=== PATIENT | female | born 1990 | race American Indian/Alaskan Native ===

== ENCOUNTER 2019-11-05 02:48 | Emergency (ER) | payer SELFPAY ==
[2019-11-05] MEDS ORDERED: dexAMETHasone 20 MG/5 ML VIAL IM ONE (04:41)
[2019-11-05] MEDS ORDERED: LIDOCAINE VISCOUS 2% 15 ML ORAL LIQD PO ONE (04:41)
[2019-11-05] MEDS ORDERED: KETOROLAC 30 MG/1 ML INJ IM ONE (04:41)
[2019-11-05] MEDS ORDERED: PENICILLIN G BENZATHINE 1.2 MILLION UNIT/2 ML INJ IM ONE (05:34)
--- NOTE | 2019-11-05 05:40 | Emergency Department Report ---
ED General Adult HPI - General Chief complaint: Sore Throat Stated complaint: THROAT SWOLLEN Source: patient Mode of arrival: Ambulatory Limitations: No Limitations - History of Present Illness Initial comments: Patient is a 29-year-old -[place] female with no past medical history who presents to the ED with complaint of acute onset persistent severe sore throat with dysphagia, diffuse body aches and pains with chills for the last 2 days. Patient states that she has not been able to swallow anything because of severe pain in her throat. Patient denies dizziness, nausea, vomiting, chest pain, shortness of breath, cough, headache, change in vision, syncope, abdominal pain, dysuria, urinary frequency and urgency and headache. Patient states that no one else at home is had similar symptoms. MD Complaint: sore throat; dysphagia -: Sudden, days(s) (2) Location: mouth Radiation: non-radiation Severity scale (0 -10): 10 Quality: aching, sharp Consistency: constant Improves with: none Worsens with: eating Associated Symptoms: denies other symptoms, loss of appetite. denies: confusion, chest pain, cough, diaphoresis, fever/chills, headaches, malaise, nausea/vomiting, rash, seizure, shortness of breath, syncope, weakness, other Treatments Prior to Arrival: none - Related Data Previous Rx's Medication Instructions Recorded Last Taken Type Ibuprofen [Motrin] 600 mg PO Q8H PRN #24 tablet 11/05/19 Unknown Rx Lidocaine Viscous 2% 10 ml PO Q6H PRN #120 ml 11/05/19 Unknown Rx Promethazine [Phenergan] 25 mg PO Q6HR PRN #24 tab 11/05/19 Unknown Rx methylPREDNISolone [Medrol 4MG 4 mg PO DAILY #21 tab.ds.pk 11/05/19 Unknown Rx DOSEPAK (21 tabs)] Allergies Allergy/AdvReac Type Severity Reaction Status Date / Time No Known Allergies Allergy Verified 11/05/19 04:45 ED Review of Systems ROS: Stated complaint: THROAT SWOLLEN Other details as noted in HPI Constitutional: chills, fever, malaise Eyes: denies: eye pain, eye discharge, vision change ENT: throat pain. denies: ear pain Respiratory: denies: cough, shortness of breath, wheezing Cardiovascular: denies: chest pain, palpitations Endocrine: no symptoms reported Gastrointestinal: denies: abdominal pain, nausea, vomiting, diarrhea Genitourinary: denies: urgency, dysuria, discharge Musculoskeletal: denies: back pain, joint swelling, arthralgia Skin: denies: rash, lesions Neurological: headache. denies: weakness, paresthesias Psychiatric: denies: anxiety, depression Hematological/Lymphatic: denies: easy bleeding, easy bruising ED Past Medical Hx - Past Medical History Previous Medical History?: No - Surgical History Past Surgical History?: No - Social History Smoking Status: Current Every Day Smoker Substance Use Type: Marijuana - Medications Home Medications: Home Medications Medication Instructions Recorded Confirmed Last Taken Type Ibuprofen [Motrin] 600 mg PO Q8H PRN #24 tablet 11/05/19 Unknown Rx Lidocaine Viscous 2% 10 ml PO Q6H PRN #120 ml 11/05/19 Unknown Rx Promethazine [Phenergan] 25 mg PO Q6HR PRN #24 tab 11/05/19 Unknown Rx methylPREDNISolone [Medrol 4MG 4 mg PO DAILY #21 tab.ds.pk 11/05/19 Unknown Rx DOSEPAK (21 tabs)] ED Physical Exam - General Limitations: No Limitations General appearance: alert, in no apparent distress - Head Head exam: Present: atraumatic, normocephalic, normal inspection - Eye Eye exam: Present: normal appearance, PERRL, EOMI Pupils: Present: normal accommodation - ENT ENT exam: Present: mucous membranes moist, TM's normal bilaterally, normal external ear exam, other (Erythematous oropharynx and mildly swollen tonsils with white exudates; grossly congested nasal passages) - Neck Neck exam: Present: normal inspection, full ROM, lymphadenopathy - Respiratory Respiratory exam: Present: normal lung sounds bilaterally. Absent: respiratory distress, wheezes, rales, rhonchi, chest wall tenderness - Cardiovascular Cardiovascular Exam: Present: regular rate, normal rhythm, normal heart sounds. Absent: systolic murmur, diastolic murmur, rubs, gallop - GI/Abdominal GI/Abdominal exam: Present: soft, normal bowel sounds. Absent: tenderness, guarding, rebound, hyperactive bowel sounds, hypoactive bowel sounds, organomegaly - Extremities Exam Extremities exam: Present: normal inspection, full ROM, normal capillary refill - Back Exam Back exam: Present: normal inspection, full ROM. Absent: tenderness, CVA tenderness (L), muscle spasm, paraspinal tenderness, vertebral tenderness - Neurological Exam Neurological exam: Present: alert, oriented X3, CN II-XII intact, normal gait, reflexes normal - Psychiatric Psychiatric exam: Present: normal affect, normal mood - Skin Skin exam: Present: warm, dry, intact, normal color. Absent: rash ED Course Vital Signs 11/05/19 02:58 Temperature 99.7 F H Pulse Rate 93 H Respiratory 18 Rate Blood Pressure 135/80 O2 Sat by Pulse 98 Oximetry ED Medical Decision Making - Medical Decision Making This is a 29-year-old female who presented to the ED with severe sore throat, dysphagia, diffuse body aches and pains with chills and headache for 2 days. In the ED, patient is alert and oriented x3 and is not in any distress with normal vital signs but appears to be uncomfortable. Rapid strep test was positive for group A strep. Patient was treated for pain in the ED and also received oral steroids and Bicillin 1,200,000 units intramuscular injection. On reevaluation, patient pain is well controlled with medications. Patient was discharged home on medications and advised to follow-up with ENT physician Dr. Fatmata Chaudhry in 3 to 5 days for reevaluation. Patient was also advised to return to the ED immediately if symptoms get worse. - Differential Diagnosis Strep pharyngitis; Tonsillar abscess; Viral pharyngitis; Pneumonia Critical care attestation.: If time is entered above; I have spent that time in minutes in the direct care of this critically ill patient, excluding procedure time. ED Disposition Clinical Impression: Acute streptococcal pharyngitis, Acute bacterial tonsillitis Disposition: TO HOME OR SELFCARE Is pt being admited?: No Does the pt Need Aspirin: No Condition: Stable Instructions: Strep Throat (ED), Tonsillitis (ED), Upper Respiratory Infection (ED) Additional Instructions: Take medication with food, drink plenty of fluids and follow-up with your primary care physician in 5 to 7 days for reevaluation. Return to the ED immediately if symptoms get worse. Prescriptions: Lidocaine Viscous 2% 10 ml PO Q6H PRN #120 ml PRN Reason: Pain , Severe (7-10) methylPREDNISolone [Medrol 4MG DOSEPAK (21 tabs)] 4 mg PO DAILY #21 tab.ds.pk Ibuprofen [Motrin] 600 mg PO Q8H PRN #24 tablet PRN Reason: Pain Promethazine [Phenergan] 25 mg PO Q6HR PRN #24 tab PRN Reason: Nausea Referrals: FATMATA CHAUDHRY MD [Staff Physician] - 3-5 Days Time of Disposition: 05:42 Print Language: PRYDEINIG
[2019-11-05 06:29] VITALS: BP 117/64
== END 2019-11-05 06:30 | disposition home or self-care (01) ==
LOC: ED 02:48
DX: J02.0 Streptococcal pharyngitis (principal); J03.80 Acute tonsillitis due to other specified organisms; B96.89 Other specified bacterial agents as the cause of diseases classified elsewhere; F12.10 Cannabis abuse, uncomplicated; F17.200 Nicotine dependence, unspecified, uncomplicated
CPT/HCPCS: 87430; 96372; 99283; J0561; J1100; J1885

== ENCOUNTER 2020-06-08 11:24 | Emergency (ER) | payer MEDICAID ==
--- NOTE | 2020-06-08 11:32 | Emergency Department Report ---
ED Chest Pain HPI - General Chief Complaint: Chest Pain Stated Complaint: RT SIDE RIB PAIN Time Seen by Provider: 06/08/20 11:31 Source: patient Mode of arrival: Ambulatory Limitations: No Limitations - History of Present Illness Initial Comments: This is a 30-year-old female nontoxic, well in appearance with no signs of distress presents for intermittent right lateral rib pain x 1 week. Patient stated has been heavy lifting and worsen with movement and resolved with rest. Patient denies any trauma or injuries. Patient denies any neck pain or back pains. Denies any radiation of pain. Patient denies loss of consciousness, head trauma, ecchymosis, chest pain, short of breath, headache, blurry vision, fever, chills, stiff neck, decreased range of motion, bladder or bowel instability, diaphoresis, nausea, vomiting, abdominal pain, joint pain or swelling, visual changes, chest wall tenderness, numbness or tingling sensation extremity. Patient is currently ambulatory with no assistance. Patient denies any allergies. MD Complaint: other (right lateral rib pain) -: week(s) Pain Location: other (right lateral rib area) Pain Radiation: none Severity: mild Severity scale (0 -10): 3 Quality: aching Consistency: intermittent Improves With: rest Worsens With: palpation, movement re: denies: nausea, vomting, diaphoresis, dyspnea, sense of impending doom Other Symptoms: denies: cough, fever, syncope, rash, acid taste in mouth, leg swelling, palpitations, burping Treatments Prior to Arrival: none Aspirin use within the Past 7 Days: (0) No - Related Data On Oral Contraceptives: No Previous Rx's Medication Instructions Recorded Last Taken Type Ibuprofen [Motrin] 600 mg PO Q8H PRN #24 tablet 11/05/19 Unknown Rx Lidocaine Viscous 2% 10 ml PO Q6H PRN #120 ml 11/05/19 Unknown Rx Promethazine [Phenergan] 25 mg PO Q6HR PRN #24 tab 11/05/19 Unknown Rx methylPREDNISolone [Medrol 4MG 4 mg PO DAILY #21 tab.ds.pk 11/05/19 Unknown Rx DOSEPAK (21 tabs)] Cyclobenzaprine [Flexeril] 10 mg PO QHS PRN #10 tablet 06/08/20 Unknown Rx Naproxen 500 mg PO Q12H PRN #12 tablet 06/08/20 Unknown Rx Allergies Allergy/AdvReac Type Severity Reaction Status Date / Time No Known Allergies Allergy Verified 11/05/19 04:45 Heart Score - HEART Score History: Slightly suspicious EKG: Normal Age: < 45 Risk factors: No known risk factors Troponin: < normal limit HEART Score: 0 ED Review of Systems ROS: Stated complaint: RT SIDE RIB PAIN Other details as noted in HPI Constitutional: denies: chills, fever Eyes: denies: eye pain, eye discharge, vision change ENT: denies: ear pain, throat pain Respiratory: denies: cough, shortness of breath, wheezing Cardiovascular: denies: chest pain, palpitations Endocrine: no symptoms reported Gastrointestinal: denies: abdominal pain, nausea, diarrhea Genitourinary: denies: urgency, dysuria, discharge Musculoskeletal: denies: back pain, joint swelling, arthralgia Skin: denies: rash, lesions Neurological: denies: headache, weakness, paresthesias Psychiatric: denies: anxiety, depression Hematological/Lymphatic: denies: easy bleeding, easy bruising ED Past Medical Hx - Social History Smoking Status: Current Every Day Smoker Substance Use Type: Marijuana - Medications Home Medications: Home Medications Medication Instructions Recorded Confirmed Last Taken Type Ibuprofen [Motrin] 600 mg PO Q8H PRN #24 tablet 11/05/19 Unknown Rx Lidocaine Viscous 2% 10 ml PO Q6H PRN #120 ml 11/05/19 Unknown Rx Promethazine [Phenergan] 25 mg PO Q6HR PRN #24 tab 11/05/19 Unknown Rx methylPREDNISolone [Medrol 4MG 4 mg PO DAILY #21 tab.ds.pk 11/05/19 Unknown Rx DOSEPAK (21 tabs)] Cyclobenzaprine [Flexeril] 10 mg PO QHS PRN #10 tablet 06/08/20 Unknown Rx Naproxen 500 mg PO Q12H PRN #12 tablet 06/08/20 Unknown Rx ED Physical Exam - General Limitations: No Limitations General appearance: alert, in no apparent distress - Head Head exam: Present: atraumatic, normocephalic - Eye Eye exam: Present: normal appearance - Neck Neck exam: Present: normal inspection, full ROM. Absent: tenderness, meningismus, lymphadenopathy - Respiratory Respiratory exam: Present: normal lung sounds bilaterally, chest wall tenderness (right lateral rib). Absent: respiratory distress, wheezes, rales, rhonchi, stridor, accessory muscle use, decreased breath sounds, prolonged expiratory - Cardiovascular Cardiovascular Exam: Present: regular rate, normal rhythm, normal heart sounds. Absent: bradycardia, tachycardia, irregular rhythm, systolic murmur, diastolic murmur, rubs, gallop - GI/Abdominal GI/Abdominal exam: Present: soft, normal bowel sounds. Absent: distended, tenderness, guarding, rebound, rigid, diminished bowel sounds - Extremities Exam Extremities exam: Present: full ROM - Back Exam Back exam: Present: normal inspection, full ROM. Absent: tenderness, CVA tenderness (R), CVA tenderness (L), muscle spasm, paraspinal tenderness, vertebral tenderness, rash noted - Neurological Exam Neurological exam: Present: alert, oriented X3, normal gait - Psychiatric Psychiatric exam: Present: normal affect, normal mood - Skin Skin exam: Present: warm, dry, intact, normal color. Absent: rash ED Course Vital Signs 06/08/20 11:32 Temperature 98.1 F Pulse Rate 70 Respiratory 16 Rate Blood Pressure 117/58 O2 Sat by Pulse 99 Oximetry - Reevaluation(s) Reevaluation #1: 06/08/20 11:44 Patient is speaking in full sentences with no signs of distress noted. ED Medical Decision Making - Radiology Data Referring Physician: JAHAIRA BURKS Patient Name: MINO STALLINGS Date of : 1990 Sex: Female Report Date: 2020-06-08 Report Status: [place] [address] XRay Report Signed Patient: MINO STALLINGS MR#: [id number] : 1990 Acct:[id number] Age/Sex: 30 / F ADM Date: 06/08/20 Loc: ED Attending Dr: Ordering Physician: JAHAIRA BURKS NP Date of Service: 06/08/20 Procedure(s): XR ribs UNI w PA Chest 3+V RT Accession Number(s): [id number] cc: JAHAIRA BURKS NP Fluoro Time In Minutes: RIGHT RIBS 3 VIEWS INDICATION / CLINICAL INFORMATION: pain. COMPARISON: None available. FINDINGS: RIBS: No acute, displaced fracture or other acute abnormality. LUNGS: No acute findings. No pneumothorax. Signer Name: Royce Sadler MD Signed: 06/08/2020 12:10 PM Workstation Name: [id number] Transcribed By: SS Dictated By: ROYCE SADLER Electronically Authenticated By: ROYCE SADLER Signed Date/Time: 06/08/20 1210 DD/ 1209 TD/TT: - Medical Decision Making This is a 30-year-old female that presents with right muscle rib strain. Patient is stable was examined by me. PERC 0 points for PE. Patient is notified of the xray results with no questions noted by the patient. Patient is discharged with muscle relaxant and NSAID. Patient was instructed not to operate any machinery while taking muscle relaxant as they cause her drowsiness. Patient was referred to Follow-up with a primary care doctor in 3-5 days or if symptoms worsen and continue return to emergency room as soon as possible. At time of discharge, the patient does not seem toxic or ill in appearance. No acute signs of distress noted. Patient agrees to discharge treatment plan of care. No further questions noted by the patient. Critical care attestation.: If time is entered above; I have spent that time in minutes in the direct care of this critically ill patient, excluding procedure time. ED Disposition Clinical Impression: Costochondritis, acute Disposition: DC-01 TO HOME OR SELFCARE Is pt being admited?: No Does the pt Need Aspirin: No Condition: Stable Instructions: Cyclobenzaprine (By mouth) Additional Instructions: Follow-up with a primary care and [facility] doctor in 2 days or if symptoms worsen and continue return to the emergency department as soon as possible. Prescriptions: Cyclobenzaprine [Flexeril] 10 mg PO QHS PRN #10 tablet PRN Reason: Muscle Spasm Naproxen 500 mg PO Q12H PRN #12 tablet PRN Reason: Pain , Severe (7-10) Referrals: PRIMARY CARE, [Primary Care Provider] - 3-5 Days DEENA ISABEL MD [Staff Physician] - 3-5 Days FLAVIA LEE MD [Staff Physician] - 3-5 Days Forms: Work/School Release Form(ED)
[2020-06-08 11:34] VITALS: BP 117/58
--- NOTE | 2020-06-08 12:15 | XRay Report ---
RIGHT RIBS 3 VIEWS INDICATION / CLINICAL INFORMATION: pain. COMPARISON: None available. FINDINGS: RIBS: No acute, displaced fracture or other acute abnormality. LUNGS: No acute findings. No pneumothorax. Signer Name: Ammon Sadler MD Signed: 06/08/2020 12:10 PM Workstation Name: [id number]
== END 2020-06-08 12:37 | disposition home or self-care (01) ==
LOC: ED 11:24
DX: M94.0 Chondrocostal junction syndrome [Tietze] (principal); F17.200 Nicotine dependence, unspecified, uncomplicated; F12.10 Cannabis abuse, uncomplicated